=== PATIENT | female | born 1960 ===

== ENCOUNTER 2025-04-27 23:48 | Emergency (ER) | payer MEDICARE, BC ==
[2025-04-28 04:40] LABS: BASOPHILS PERCENT AUTO 0.6 % (0.0-1.0); EOSINOPHILS PERCENT AUTO 1.1 % (1.0-3.0); LYMPHOCYTES PERCENT AUTO 32.1 % (20.5-50.1); MONOCYTES PERCENT AUTO 6.6 % (2-8); NEUTROPHILS PERCENT AUTO 59.6 % (42.2-75.2); PLATELET COUNT,PLT 260 10^3/uL (150-450); RED BLOOD CELL COUNT 3.57 10^6/uL (4.2-5.4); WHITE BLOOD CELL COUNT,WBC 6.4 10^3/uL (5.0-10.0)
[2025-04-28 05:31] LABS: SEDIMENTATION RATE MANUAL 4 mm/hr (0-20)
== END 2025-04-28 06:03 | disposition home or self-care (01) ==
LOC: DL.ED 23:48
DX: G43.B0 Ophthalmoplegic migraine, not intractable (principal)
CPT/HCPCS: 36415; 85025; 85651; 99283; 99284; J3490